=== PATIENT | male | born 1980 | race Caucasian/White ===

== ENCOUNTER → 2023-10-10 15:54 | Outpatient (CLI) | payer BC, SELFPAY ==
--- NOTE | ~2023-10-10 | MR_ITS ---
EXAMINATION: MR knee LT wo con DATE: 10/10/2023 16:24 INDICATION: Left knee pain TECHNIQUE: Magnetic resonance imaging (MRI) of the left knee was performed without intravenous contra st. Sequences included coronal PD-weighted FSE, coronal PD-weighted FS FSE, sagittal T2-weighted FSE , sagittal PD-weighted FS FSE and axial PD weighted fat saturated FSE. COMPARISON: None. FINDINGS: Medial compartment: Medial meniscus is normal. Articular cartilage is normal. Lateral compartment: Lateral meniscus is normal. Deep chondral ulceration and fissuring without underlying degenerative brunson bchondral changes at the posterior third of the lateral tibial plateau. Normal articular cartilage al fabio the weightbearing lateral femoral condyle. Patellofemoral compartment: Deep chondral ulceration and fissuring in place appearing parrish near full-thickness with underlying edema-like signal change at the cephalad third of the lateral two thirds of the lateral trochlea. Rem ainder of the trochlear cartilage appears normal. Central subchondral osteophytes associated with ful l and near full-thickness chondral ulceration and deep fissuring along the caudal one half to one thi rd of the medial and lateral patellar facets and intervening apical ridge. Associated mild particular cystlike and edema-like signal changes. Ligaments and tendons: Anterior and posterior cruciate ligaments are normal. The medial collateral ligament and fibular herson ateral ligament complex are normal. The extensor mechanism is normal. The visualized medial and later al hamstring tendons as well as the iliotibial band are normal. Fluid: Small knee joint effusion with mild synovitis at the suprapatellar pouch. No intra-articular loose os teochondral bodies identified. 1.3 cm low signal intensity loose body at the cephalad aspect of the 7 .3 x 3.1 x 2.2 cm Eastman's cyst. Osseous/other: Bone alignment is normal. No fracture or pathologic marrow replacing process. IMPRESSION: 1. 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 2. Small left knee joint effusion and moderate-sized Eastman's cyst. Reviewed, dictated and finalized at location A. B OFFICE COORDINATOR IMPRESSION: 1. Mild patellofemoral and lateral compartment osteoarthritis with high-grade c hondromalacia at the inferior patella and lateral trochlea and small region of moderate to high-grade chondromalacia at the posterior aspect lateral tibial pl ateau. 2. Small left knee joint effusion and moderate-sized Eastman's cyst.
== END ==
PROVIDERS: PCP Orthopaedic Surgery; Visit Provider Orthopaedic Surgery
DX: M17.12 Unilateral primary osteoarthritis, left knee (principal); M25.462 Effusion, left knee; M71.22 Synovial cyst of popliteal space [Baker], left knee
CPT/HCPCS: 73721